=== PATIENT | female | born 1950 | race Caucasian/White ===

== ENCOUNTER 2018-11-16 15:54 | Inpatient (IN) | payer OTHER | END 2018-11-23 20:48 | LOC: JER 15:54 → J4S 11-17 15:15 → JERBED 16:07 ==

== ENCOUNTER 2021-01-23 13:43 | Inpatient (IN) | payer OTHER ==
[2021-01-23 16:36] LABS: VENOUS BASE EXCESS -1.1 mmol/L (-2-2); VENOUS O2 SATURATION 96.9 % (70-80); VENOUS PCO2 35.1 mmHg (38-52); VENOUS PH 7.427 (7.310-7.410)
[2021-01-23 16:52] LABS: BASO % 0.6 % (0-2.0); EOS % 0.6 % (0-4.5); HEMATOCRIT 40.9 % (32.4-45.2); HEMOGLOBIN 13.5 GM/dL (10.7-15.3); INR 1.14 (0.83-1.09); LYMPH % 8.7 % (8-40); MCH 30.6 pg (25.7-33.7); MCHC 33.1 g/dl (32.0-36.0); MEAN CELL VOLUME 92.5 fl (80-96); MEAN PLT VOLUME 8.3 fl (7.5-11.1); MONO % 6.9 % (3.8-10.2); NEUT % 83.2 % (42.8-82.8); PLATELET COUNT 184 10^3/uL (134-434); PROTHROMBIN TIME (PATIENT) 13.7 SEC (9.7-13.0); RBC 4.42 M/mm3 (3.60-5.2); RDW 17.1 % (11.6-15.6)
[2021-01-23 16:55] LABS: ACTIVATED PTT 26.6 SECONDS (25.2-36.5)
[2021-01-23 16:57] LABS: CHLORIDE 109 mmol/L (98-107); SODIUM 139 mmol/L (136-145)
[2021-01-23 16:59] LABS: CALCIUM 8.3 mg/dL (8.5-10.1)
[2021-01-23 17:00] LABS: ALBUMIN 3.7 g/dl (3.4-5.0); ANION GAP 8 MMOL/L (8-16); BLOOD UREA NITROGEN 18.8 mg/dL (7-18); CO2 22 mmol/L (21-32); GLUCOSE,RANDOM 84 mg/dL (74-106)
[2021-01-23 17:03] LABS: CREATININE 0.7 mg/dL (0.55-1.3); SGOT/AST 32 U/L (15-37); SGPT/ALT 48 U/L (13-61)
[2021-01-23 17:04] LABS: BILIRUBIN,TOTAL 0.6 mg/dL (0.2-1)
[2021-01-23 17:06] LABS: ALK PHOS 63 U/L (45-117)
[2021-01-23 17:08] LABS: N-TERMINAL BNP 5448.3 pg/ml (5-125)
[2021-01-23] MEDS ORDERED: METOPROLOL TARTRATE 50 MG TABLET (FP) PO ONE (20:24)
[2021-01-23] MEDS ORDERED: APIXABAN 5 MG TABLET ONE (20:58)
[2021-01-23] MEDS ORDERED: FUROSEMIDE 40 MG/4 ML INJECTABLE VIAL ONE (20:58)
[2021-01-23] MEDS: APIXABAN 5 MG TABLET PO SCH (21:02)
[2021-01-23] MEDS: FUROSEMIDE 40 MG/4 ML INJECTABLE VIAL IVPUSH SCH (21:02)
[2021-01-23] MEDS ORDERED: NYSTATIN POWDER 100,000 UNITS/GM - 15 GM TOPICAL POWDER TP ONE (21:48)
[2021-01-23] MEDS ORDERED: CARVEDILOL 3.125 MG TABLET (FP) PO SCH (22:00)
[2021-01-23] MEDS: ACETAMINOPHEN 500 MG TABLET (FP) PO PRN (22:20)
[2021-01-24 08:02] LABS: BASO % 0.5 % (0-2.0); EOS % 1.8 % (0-4.5); HEMATOCRIT 41.3 % (32.4-45.2); HEMOGLOBIN 13.5 GM/dL (10.7-15.3); LYMPH % 11.1 % (8-40); MCHC 32.8 g/dl (32.0-36.0); MEAN CELL VOLUME 94.5 fl (80-96); MEAN PLT VOLUME 8.3 fl (7.5-11.1); NEUT % 79.6 % (42.8-82.8); PLATELET COUNT 182 10^3/uL (134-434); RBC 4.37 M/mm3 (3.60-5.2); RDW 17.4 % (11.6-15.6); WHITE BLOOD COUNT 7.7 K/mm3 (4.0-10.0)
[2021-01-24 08:24] LABS: ALBUMIN 3.5 g/dl (3.4-5.0); BLOOD UREA NITROGEN 25.3 mg/dL (7-18); INR 1.45 (0.83-1.09); MAGNESIUM 2.6 mg/dL (1.8-2.4); PROTHROMBIN TIME (PATIENT) 17.6 SEC (9.7-13.0)
[2021-01-24 08:28] LABS: CREATININE 0.9 mg/dL (0.55-1.3); PHOSPHOROUS 3.8 mg/dL (2.5-4.9)
[2021-01-24 08:29] LABS: BILIRUBIN,TOTAL 0.7 mg/dL (0.2-1); TOT PROT 6.9 g/dl (6.4-8.2)
[2021-01-24] MEDS ORDERED: ENOXAPARIN NA (PORCINE) 40 MG/0.4 ML DISP.SYRIN SQ SCH (10:00)
[2021-01-24] MEDS ORDERED: APIXABAN 5 MG TABLET PO SCH (10:00)
[2021-01-24] MEDS: FUROSEMIDE 40 MG/4 ML INJECTABLE VIAL IVPUSH SCH (11:03)
[2021-01-24] MEDS: APIXABAN 5 MG TABLET PO SCH ×2 (11:04→21:03)
[2021-01-24] MEDS: ACETAMINOPHEN 500 MG TABLET (FP) PO PRN (21:03)
[2021-01-25] MEDS ORDERED: MELATONIN 5 MG TABLETS PO ONE ×2 (03:02→19:56)
[2021-01-25] MEDS ORDERED: FUROSEMIDE 40 MG/4 ML INJECTABLE VIAL IVPUSH ONE (07:50)
[2021-01-25 08:47] LABS: URINE APPEARANCE CLEAR; URINE BILIRUBIN NEGATIVE (NEGATIVE); URINE COLOR YELLOW; URINE GLUCOSE (UA) NEGATIVE (NEGATIVE); URINE KETONE NEGATIVE (NEGATIVE); URINE LEUK ESTERASE NEGATIVE (NEGATIVE); URINE NITRITE NEGATIVE (NEGATIVE); URINE PROTEIN TRACE (NEGATIVE)
[2021-01-25 08:53] LABS: BASO % 0.7 % (0-2.0); EOS % 1.9 % (0-4.5); HEMATOCRIT 41.5 % (32.4-45.2); HEMOGLOBIN 13.6 GM/dL (10.7-15.3); LYMPH % 6.9 % (8-40); MCH 30.5 pg (25.7-33.7); MCHC 32.8 g/dl (32.0-36.0); MEAN CELL VOLUME 92.7 fl (80-96); MEAN PLT VOLUME 8.2 fl (7.5-11.1); MONO % 6.8 % (3.8-10.2); NEUT % 83.7 % (42.8-82.8); PLATELET COUNT 169 10^3/uL (134-434); RBC 4.47 M/mm3 (3.60-5.2); WHITE BLOOD COUNT 8.4 K/mm3 (4.0-10.0)
[2021-01-25 09:12] LABS: CALCIUM 8.1 mg/dL (8.5-10.1)
[2021-01-25 09:13] LABS: ALBUMIN 3.4 g/dl (3.4-5.0); BLOOD UREA NITROGEN 29.7 mg/dL (7-18)
[2021-01-25 09:16] LABS: CREATININE 0.8 mg/dL (0.55-1.3)
[2021-01-25 09:18] LABS: BILIRUBIN,TOTAL 0.6 mg/dL (0.2-1); TOT PROT 6.7 g/dl (6.4-8.2)
[2021-01-25] MEDS: APIXABAN 5 MG TABLET PO SCH ×2 (09:22→21:16)
[2021-01-25] MEDS: LISINOPRIL 5 MG TABLET PO SCH (09:22)
[2021-01-25] MEDS: ACETAMINOPHEN 500 MG TABLET (FP) PO PRN ×2 (09:23→20:17)
[2021-01-26] MEDS: APIXABAN 5 MG TABLET PO SCH ×2 (09:22→22:41)
[2021-01-26] MEDS: LISINOPRIL 5 MG TABLET PO SCH (09:22)
[2021-01-26] MEDS ORDERED: FUROSEMIDE 40 MG/4 ML INJECTABLE VIAL IVPUSH ONE (10:45)
[2021-01-26 11:24] LABS: HEMOGLOBIN 13.3 GM/dL (10.7-15.3); MCH 31.1 pg (25.7-33.7); MCHC 33.2 g/dl (32.0-36.0); MEAN CELL VOLUME 93.7 fl (80-96); MEAN PLT VOLUME 8.6 fl (7.5-11.1); PLATELET COUNT 172 10^3/uL (134-434); RBC 4.27 M/mm3 (3.60-5.2); RDW 17.1 % (11.6-15.6); WHITE BLOOD COUNT 8.6 K/mm3 (4.0-10.0)
[2021-01-26 11:47] LABS: ALBUMIN 3.2 g/dl (3.4-5.0); BLOOD UREA NITROGEN 25.1 mg/dL (7-18); CALCIUM 8.1 mg/dL (8.5-10.1); MAGNESIUM 2.3 mg/dL (1.8-2.4)
[2021-01-26 11:50] LABS: CREATININE 0.7 mg/dL (0.55-1.3)
[2021-01-26 11:52] LABS: BILIRUBIN,TOTAL 0.6 mg/dL (0.2-1); TOT PROT 6.3 g/dl (6.4-8.2)
[2021-01-26] MEDS: MINERAL OIL/PET HY-PHL TOPICAL OINTMENT 454 GM JAR TP SCH (12:22)
[2021-01-26] MEDS ORDERED: KCL 10 MEQ IVPB 10 MEQ/100 ML INFUS.BAG IVPB SCH (13:30)
[2021-01-26 15:42] VITALS: BMI 41.8
[2021-01-26] MEDS: ACETAMINOPHEN 500 MG TABLET (FP) PO PRN (15:50)
[2021-01-26] MEDS ORDERED: MELATONIN 5 MG TABLETS PO ONE (21:25)
[2021-01-27 07:40] LABS: CALCIUM 8.2 mg/dL (8.5-10.1)
[2021-01-27 07:41] LABS: ALBUMIN 3.4 g/dl (3.4-5.0); BLOOD UREA NITROGEN 20.4 mg/dL (7-18)
[2021-01-27 07:44] LABS: CREATININE 0.6 mg/dL (0.55-1.3)
[2021-01-27 07:46] LABS: BILIRUBIN,TOTAL 0.6 mg/dL (0.2-1); TOT PROT 6.6 g/dl (6.4-8.2)
[2021-01-27] MEDS: LISINOPRIL 5 MG TABLET PO SCH (09:34)
[2021-01-27] MEDS: APIXABAN 5 MG TABLET PO SCH ×2 (09:34→21:56)
[2021-01-27] MEDS: MINERAL OIL/PET HY-PHL TOPICAL OINTMENT 454 GM JAR TP SCH (09:34)
[2021-01-27] MEDS: FUROSEMIDE 40 MG TABLET (FP) PO SCH (12:38)
[2021-01-27] MEDS ORDERED: cefTRIAXone SODIUM 1 GM VIAL ONE (17:30)
[2021-01-27] MEDS ORDERED: DEXTROSE 5%-WATER - 50 ML IVPB ONE (17:30)
[2021-01-27] MEDS: CEFTRIAXONE 1 GM in DEXTROSE 5%-WATER - 50 ML IVPB SCH (17:49)
[2021-01-27] MEDS: ACETAMINOPHEN 500 MG TABLET (FP) PO PRN (20:18)
[2021-01-27] MEDS ORDERED: traMADol HCL 50 MG TABLET PO ONE (20:41)
[2021-01-28] MEDS ORDERED: DEXTROSE 5%-WATER - 50 ML IVPB ONE (10:15)
[2021-01-28] MEDS ORDERED: cefTRIAXone SODIUM 1 GM VIAL ONE (10:15)
[2021-01-28] MEDS: MINERAL OIL/PET HY-PHL TOPICAL OINTMENT 454 GM JAR TP SCH (10:31)
[2021-01-28] MEDS: CEFTRIAXONE 1 GM in DEXTROSE 5%-WATER - 50 ML IVPB SCH (10:31)
[2021-01-28] MEDS: APIXABAN 5 MG TABLET PO SCH ×2 (10:31→21:14)
[2021-01-28] MEDS: FUROSEMIDE 40 MG TABLET (FP) PO SCH (10:31)
[2021-01-28] MEDS: ACETAMINOPHEN 500 MG TABLET (FP) PO PRN (10:37)
[2021-01-29 00:03] VITALS: BP 95/66; PULSE 99; TEMP 98.1
[2021-01-29] MEDS ORDERED: FLUoxetine HCL 20 MG CAPSULE PO SCH (10:00)
== END 2021-01-29 00:09 | disposition home or self-care (01) | DRG 292 ==
LOC: JER 13:43 → JERBED 16:26 → J4S 21:16
PROVIDERS: ADMIT Internal Medicine; ATTEND Internal Medicine
DX: I11.0 Hypertensive heart disease with heart failure (principal); Z68.41 Body mass index [BMI] 40.0-44.9, adult; I50.23 Acute on chronic systolic (congestive) heart failure; I34.0 Nonrheumatic mitral (valve) insufficiency; I48.91 Unspecified atrial fibrillation; E66.9 Obesity, unspecified; F32.9 Major depressive disorder, single episode, unspecified; Z91.14 Patient's other noncompliance with medication regimen; Z91.11 Patient's noncompliance with dietary regimen; I44.7 Left bundle-branch block, unspecified
CPT/HCPCS: 36415; 71045-TC-FY; 80053; 80061; 81003; 82550; 82803; 83036; 83605; 83721; 83735; 83880; 84100; 84443; 84484; 85025; 85027; 85610; 85730; 87086; 87186; 93005; 93010; 93306-TC; 93308; 94761; 97116-GP; 97162-GP; 99285-25; C9803; U0003; U0005

== ENCOUNTER 2021-04-02 01:17 | Inpatient (IN) | payer OTHER ==
[2021-04-02 01:55] LABS: VENOUS BASE EXCESS -3.9 mmol/L (-2-2); VENOUS O2 SATURATION 85.7 % (70-80); VENOUS PCO2 56.6 mmHg (38-52); VENOUS PH 7.25 (7.310-7.410)
[2021-04-02 01:56] LABS: BASO % 0.7 % (0-2.0); EOS % 3.3 % (0-4.5); HEMATOCRIT 43.2 % (32.4-45.2); HEMOGLOBIN 14.2 GM/dL (10.7-15.3); LYMPH % 10.6 % (8-40); MCH 30.8 pg (25.7-33.7); MCHC 32.9 g/dl (32.0-36.0); MEAN CELL VOLUME 93.6 fl (80-96); MEAN PLT VOLUME 8.3 fl (7.5-11.1); MONO % 5.1 % (3.8-10.2); NEUT % 80.3 % (42.8-82.8); PLATELET COUNT 199 10^3/uL (134-434); RBC 4.62 M/mm3 (3.60-5.2); RDW 15.8 % (11.6-15.6); WHITE BLOOD COUNT 7.9 K/mm3 (4.0-10.0)
[2021-04-02 02:07] LABS: INR 1.44 (0.83-1.09); PROTHROMBIN TIME (PATIENT) 17.8 SEC (9.7-13.0)
[2021-04-02 02:09] LABS: ACTIVATED PTT 28.7 SECONDS (25.2-36.5)
[2021-04-02 02:13] LABS: CHLORIDE 107 mmol/L (98-107); SODIUM 143 mmol/L (136-145)
[2021-04-02 02:15] LABS: CALCIUM 8.4 mg/dL (8.5-10.1)
[2021-04-02 02:16] LABS: ALBUMIN 3.3 g/dl (3.4-5.0); ANION GAP 13 MMOL/L (8-16); BLOOD UREA NITROGEN 35.1 mg/dL (7-18); CO2 23 mmol/L (21-32); GLUCOSE,RANDOM 112 mg/dL (74-106); MAGNESIUM 2.1 mg/dL (1.8-2.4)
[2021-04-02 02:19] LABS: SGOT/AST 35 U/L (15-37); SGPT/ALT 37 U/L (13-61)
[2021-04-02 02:20] LABS: BILIRUBIN,TOTAL 0.4 mg/dL (0.2-1)
[2021-04-02 02:21] LABS: TOT PROT 7.2 g/dl (6.4-8.2)
[2021-04-02 02:22] LABS: ALK PHOS 79 U/L (45-117)
[2021-04-02 02:24] LABS: N-TERMINAL BNP 1357.6 pg/ml (5-125)
[2021-04-02] MEDS ORDERED: NOREPINEPHRINE BITARTRATE 16,000 MCG in SODIUM CHLORIDE 484 ML IV SCH (03:45)
[2021-04-02] MEDS ORDERED: ACETAMINOPHEN 1000 MG/100 ML VIAL (NON FORMULARY) IVPB ONE (05:11)
[2021-04-02] MEDS ORDERED: ACETAMINOPHEN INJECTION 100 ML IVPB ONE ×2 (05:12→05:18)
[2021-04-02] MEDS ORDERED: FUROSEMIDE 40 MG/4 ML INJECTABLE VIAL IVPUSH ONE (05:50)
[2021-04-02] MEDS ORDERED: FUROSEMIDE 40 MG/4 ML INJECTABLE VIAL ONE (06:06)
[2021-04-02 08:50] LABS: BASO % 0.4 % (0-2.0); EOS % 0.3 % (0-4.5); HEMATOCRIT 41.7 % (32.4-45.2); LYMPH % 5.5 % (8-40); MCHC 33.5 g/dl (32.0-36.0); MEAN CELL VOLUME 92.6 fl (80-96); MEAN PLT VOLUME 8.6 fl (7.5-11.1); MONO % 6.4 % (3.8-10.2); NEUT % 87.4 % (42.8-82.8); PLATELET COUNT 225 10^3/uL (134-434); RDW 15.3 % (11.6-15.6); WHITE BLOOD COUNT 14.4 K/mm3 (4.0-10.0)
[2021-04-02] MEDS ORDERED: DEXTROSE 5%-WATER - 50 ML IVPB ONE (09:21)
[2021-04-02] MEDS ORDERED: cefTRIAXone SODIUM 1 GM VIAL ONE (09:21)
[2021-04-02 09:26] LABS: ALBUMIN 3.6 g/dl (3.4-5.0); CALCIUM 8.9 mg/dL (8.5-10.1)
[2021-04-02 09:27] LABS: BLOOD UREA NITROGEN 34.2 mg/dL (7-18); MAGNESIUM 2.3 mg/dL (1.8-2.4)
[2021-04-02 09:30] LABS: CREATININE 0.8 mg/dL (0.55-1.3); PHOSPHOROUS 4.3 mg/dL (2.5-4.9)
[2021-04-02 09:31] LABS: BILIRUBIN,TOTAL 0.6 mg/dL (0.2-1); TOT PROT 7.4 g/dl (6.4-8.2)
[2021-04-02] MEDS ORDERED: MUPIROCIN 2% TOPICAL OINTMENT FOR DECOLONIZATION NS SCH (10:00)
[2021-04-02] MEDS ORDERED: PIPERACILLIN/TAZOB 3.375 GM 3.375 GM in DEXTROSE 5%-WATER - 50 ML IVPB SCH (10:00)
[2021-04-02] MEDS ORDERED: SACUBITRIL/VALSARTAN 24 MG-26 MG TABLET PO SCH (10:00)
[2021-04-02] MEDS ORDERED: CEFTRIAXONE 1 GM in DEXTROSE 5%-WATER - 50 ML IVPB SCH (10:00)
[2021-04-02] MEDS ORDERED: ENOXAPARIN NA (PORCINE) 40 MG/0.4 ML DISP.SYRIN SQ SCH (10:00)
[2021-04-02] MEDS ORDERED: APIXABAN 5 MG TABLET PO SCH (10:00)
[2021-04-02] MEDS ORDERED: traZODone HCL 50 MG TABLET (FP) PO ONE (10:54)
[2021-04-02] MEDS ORDERED: FLUoxetine HCL 20 MG CAPSULE PO SCH ×2 (11:00→13:00)
[2021-04-02 11:33] LABS: EPI CELLS 9 /uL (0-25.1); HYALINE CASTS 0 /uL (0-3.1); PH,URINE 5.5 (5.0-8.0); URINE APPEARANCE CLEAR; URINE BACTERIA 447 /uL (0-1359); URINE BILIRUBIN NEGATIVE (NEGATIVE); URINE COLOR YELLOW; URINE GLUCOSE (UA) NEGATIVE (NEGATIVE); URINE KETONE NEGATIVE (NEGATIVE); URINE LEUK ESTERASE NEGATIVE (NEGATIVE); URINE NITRITE NEGATIVE (NEGATIVE); URINE PROTEIN NEGATIVE (NEGATIVE); URINE RBC 33 /uL (0-23.9); URINE UROBILINOGEN 0.2 mg/dL (0.2-1.0); URINE WBC 4 /uL (0-25.8)
[2021-04-02] MEDS ORDERED: CEFTRIAXONE 1 GM in DEXTROSE 5%-WATER - 50 ML IVPB ONE (12:00)
[2021-04-02] MEDS ORDERED: PT OWN MED DRAWER 7, Y5N ONE ×2 (12:00→12:49)
[2021-04-02] MEDS ORDERED: ACETAMINOPHEN 650 MG/20.3 ML ORAL SOLUTION (CUPS) PO ONE (18:29)
[2021-04-02] MEDS ORDERED: traZODone HCL 50 MG TABLET (FP) PO SCH (22:00)
[2021-04-02] MEDS ORDERED: CHLORHEXIDINE GLUCONATE 4% CLEANSER FOR DECOLONIZATION TP SCH (22:00)
[2021-04-02] MEDS ORDERED: MELATONIN 5 MG TABLETS PO ONE (23:23)
[2021-04-02] MEDS: APIXABAN 5 MG TABLET PO SCH (23:48)
[2021-04-02] MEDS: SACUBITRIL/VALSARTAN 24 MG-26 MG TABLET PO SCH (23:48)
[2021-04-03] MEDS ORDERED: ZOLPIDEM TARTRATE 5 MG TABLET PO ONE (01:56)
[2021-04-03] MEDS ORDERED: ACETAMINOPHEN 325 MG TABLET (FP) PO ONE (04:12)
[2021-04-03] MEDS ORDERED: cefTRIAXone SODIUM 1 GM VIAL ONE (09:28)
[2021-04-03] MEDS ORDERED: DEXTROSE 5%-WATER - 50 ML IVPB ONE (09:28)
[2021-04-03] MEDS: CEFTRIAXONE 1 GM in DEXTROSE 5%-WATER - 50 ML IVPB SCH (09:29)
[2021-04-03] MEDS: APIXABAN 5 MG TABLET PO SCH ×2 (09:31→22:20)
[2021-04-03] MEDS: SACUBITRIL/VALSARTAN 24 MG-26 MG TABLET PO SCH ×2 (09:31→22:19)
[2021-04-03] MEDS ORDERED: FUROSEMIDE 40 MG/4 ML INJECTABLE VIAL IVPUSH SCH ×2 (10:00)
[2021-04-03] MEDS ORDERED: CEFTRIAXONE 1 GM in DEXTROSE 5%-WATER - 50 ML IVPB SCH (10:00)
[2021-04-03] MEDS ORDERED: PT OWN MED DRAWER 7, Y5N ONE (13:53)
[2021-04-03] MEDS: FLUoxetine HCL 20 MG CAPSULE PO SCH (15:49)
[2021-04-03] MEDS: AMINO ACIDS/PROTEIN HYDROLYS 30 ML LIQUID.PKT PO SCH (18:38)
[2021-04-03] MEDS ORDERED: MELATONIN 5 MG TABLETS PO ONE (21:51)
[2021-04-03] MEDS ORDERED: traZODone HCL 50 MG TABLET (FP) PO ONE (21:58)
[2021-04-04] MEDS ORDERED: ACETAMINOPHEN 1000 MG/100 ML VIAL (NON FORMULARY) IVPB ONE (04:19)
[2021-04-04 06:26] LABS: BASO % 0.6 % (0-2.0); HEMATOCRIT 36.7 % (32.4-45.2); HEMOGLOBIN 12.4 GM/dL (10.7-15.3); LYMPH % 12.2 % (8-40); MCH 31.2 pg (25.7-33.7); MCHC 33.7 g/dl (32.0-36.0); MEAN CELL VOLUME 92.6 fl (80-96); MEAN PLT VOLUME 8.4 fl (7.5-11.1); MONO % 9.2 % (3.8-10.2); PLATELET COUNT 150 10^3/uL (134-434); RBC 3.97 M/mm3 (3.60-5.2); RDW 15.5 % (11.6-15.6); WHITE BLOOD COUNT 6.6 K/mm3 (4.0-10.0)
[2021-04-04 07:08] LABS: CALCIUM 8.5 mg/dL (8.5-10.1); CREATININE 0.6 mg/dL (0.55-1.3); PHOSPHOROUS 3.2 mg/dL (2.5-4.9)
[2021-04-04 07:09] LABS: BLOOD UREA NITROGEN 19.6 mg/dL (7-18)
[2021-04-04 07:10] LABS: BILIRUBIN,TOTAL 0.7 mg/dL (0.2-1); MAGNESIUM 1.8 mg/dL (1.8-2.4); TOT PROT 6.3 g/dl (6.4-8.2)
[2021-04-04] MEDS ORDERED: DEXTROSE 5%-WATER - 50 ML IVPB ONE (09:24)
[2021-04-04] MEDS ORDERED: cefTRIAXone SODIUM 1 GM VIAL ONE (09:24)
[2021-04-04] MEDS ORDERED: PT OWN MED DRAWER 7, Y5N ONE ×2 (09:24→21:17)
[2021-04-04] MEDS: FLUoxetine HCL 20 MG CAPSULE PO SCH (10:13)
[2021-04-04] MEDS: SACUBITRIL/VALSARTAN 24 MG-26 MG TABLET PO SCH ×2 (10:14→21:22)
[2021-04-04] MEDS: MULTIVITAMINS (DAILY MVI) TABLET (FP) PO SCH (10:14)
[2021-04-04] MEDS: APIXABAN 5 MG TABLET PO SCH ×2 (10:14→21:22)
[2021-04-04] MEDS: CEFTRIAXONE 1 GM in DEXTROSE 5%-WATER - 50 ML IVPB SCH (10:14)
[2021-04-04] MEDS: AMINO ACIDS/PROTEIN HYDROLYS 30 ML LIQUID.PKT PO SCH ×2 (10:17→17:42)
[2021-04-04] MEDS: ACETAMINOPHEN 325 MG TABLET (FP) PO PRN ×2 (12:54→23:49)
[2021-04-04] MEDS ORDERED: traZODone HCL 50 MG TABLET (FP) PO SCH (22:00)
[2021-04-05 06:45] LABS: WHITE BLOOD COUNT 6.7 K/mm3 (4.0-10.0)
[2021-04-05 06:46] LABS: BASO % 0.5 % (0-2.0); EOS % 3.3 % (0-4.5); HEMATOCRIT 39.1 % (32.4-45.2); HEMOGLOBIN 13.2 GM/dL (10.7-15.3); MCH 31.2 pg (25.7-33.7); MCHC 33.6 g/dl (32.0-36.0); MEAN CELL VOLUME 92.7 fl (80-96); MEAN PLT VOLUME 8.2 fl (7.5-11.1); MONO % 9.8 % (3.8-10.2); NEUT % 71.4 % (42.8-82.8); PLATELET COUNT 160 10^3/uL (134-434); RBC 4.22 M/mm3 (3.60-5.2); RDW 15.4 % (11.6-15.6)
[2021-04-05 07:42] LABS: BLOOD UREA NITROGEN 15.9 mg/dL (7-18); CREATININE 0.5 mg/dL (0.55-1.3)
[2021-04-05 07:43] LABS: ALBUMIN 2.9 g/dl (3.4-5.0); BILIRUBIN,TOTAL 0.5 mg/dL (0.2-1); CALCIUM 8.6 mg/dL (8.5-10.1); TOT PROT 6.4 g/dl (6.4-8.2)
[2021-04-05] MEDS: AMINO ACIDS/PROTEIN HYDROLYS 30 ML LIQUID.PKT PO SCH ×2 (08:03→17:30)
[2021-04-05] MEDS ORDERED: FUROSEMIDE 40 MG TABLET (FP) PO SCH ×2 (10:00→11:28)
[2021-04-05] MEDS ORDERED: PT OWN MED DRAWER 7, Y5N ONE ×3 (11:06→20:51)
[2021-04-05] MEDS: ACETAMINOPHEN 325 MG TABLET (FP) PO PRN ×2 (11:25→23:24)
[2021-04-05] MEDS ORDERED: CEFTRIAXONE 1 GM in DEXTROSE 5%-WATER - 50 ML IVPB SCH (11:28)
[2021-04-05] MEDS ORDERED: SACUBITRIL/VALSARTAN 24 MG-26 MG TABLET PO SCH ×2 (11:28→22:00)
[2021-04-05] MEDS ORDERED: FLUoxetine HCL 20 MG CAPSULE PO SCH ×2 (11:28→11:45)
[2021-04-05] MEDS ORDERED: APIXABAN 5 MG TABLET PO SCH ×2 (11:28→22:00)
[2021-04-05] MEDS ORDERED: MULTIVITAMINS (DAILY MVI) TABLET (FP) PO SCH (11:29)
[2021-04-05] MEDS: FUROSEMIDE 40 MG TABLET (FP) PO SCH (11:45)
[2021-04-05] MEDS: APIXABAN 5 MG TABLET PO SCH ×3 (11:45→21:06)
[2021-04-05] MEDS: MULTIVITAMINS (DAILY MVI) TABLET (FP) PO SCH ×2 (11:45→14:56)
[2021-04-05] MEDS: SACUBITRIL/VALSARTAN 24 MG-26 MG TABLET PO SCH ×3 (11:45→21:06)
[2021-04-05] MEDS: CEFTRIAXONE 1 GM in DEXTROSE 5%-WATER - 50 ML IVPB SCH ×2 (11:46→14:56)
[2021-04-05] MEDS: FLUoxetine HCL 20 MG CAPSULE PO SCH (14:56)
[2021-04-05] MEDS: traZODone HCL 50 MG TABLET (FP) PO SCH (21:07)
[2021-04-06] MEDS ORDERED: NYSTATIN POWDER 100,000 UNITS/GM - 15 GM TOPICAL POWDER TP ONE (01:44)
[2021-04-06] MEDS ORDERED: MINERAL OIL/PET HY-PHL TOPICAL OINTMENT 454 GM JAR TP ONE (01:45)
[2021-04-06] MEDS: ACETAMINOPHEN 325 MG TABLET (FP) PO PRN ×2 (08:14→21:50)
[2021-04-06] MEDS: AMINO ACIDS/PROTEIN HYDROLYS 30 ML LIQUID.PKT PO SCH ×2 (08:16→17:25)
[2021-04-06] MEDS: FLUoxetine HCL 20 MG CAPSULE PO SCH (08:16)
[2021-04-06 09:00] LABS: BASO % 0.5 % (0-2.0); EOS % 3.4 % (0-4.5); HEMATOCRIT 37.6 % (32.4-45.2); HEMOGLOBIN 12.8 GM/dL (10.7-15.3); LYMPH % 11.5 % (8-40); MCHC 33.9 g/dl (32.0-36.0); MEAN CELL VOLUME 91.5 fl (80-96); MONO % 9.3 % (3.8-10.2); NEUT % 75.3 % (42.8-82.8); PLATELET COUNT 165 10^3/uL (134-434); RBC 4.12 M/mm3 (3.60-5.2); RDW 15.7 % (11.6-15.6); WHITE BLOOD COUNT 6.8 K/mm3 (4.0-10.0)
[2021-04-06 09:32] LABS: ALBUMIN 3.2 g/dl (3.4-5.0); BLOOD UREA NITROGEN 21.2 mg/dL (7-18); CALCIUM 8.9 mg/dL (8.5-10.1)
[2021-04-06 09:35] LABS: CREATININE 0.6 mg/dL (0.55-1.3)
[2021-04-06 09:37] LABS: BILIRUBIN,TOTAL 0.5 mg/dL (0.2-1); TOT PROT 6.7 g/dl (6.4-8.2)
[2021-04-06] MEDS ORDERED: CEFTRIAXONE 1 GM in DEXTROSE 5%-WATER - 50 ML IVPB SCH (10:00)
[2021-04-06] MEDS ORDERED: FLUoxetine HCL 20 MG CAPSULE PO SCH (10:00)
[2021-04-06] MEDS ORDERED: MULTIVITAMINS (DAILY MVI) TABLET (FP) PO SCH (10:00)
[2021-04-06] MEDS ORDERED: FUROSEMIDE 40 MG TABLET (FP) PO SCH (10:00)
[2021-04-06] MEDS ORDERED: cefTRIAXone SODIUM 1 GM VIAL ONE (10:10)
[2021-04-06] MEDS ORDERED: DEXTROSE 5%-WATER - 50 ML IVPB ONE (10:10)
[2021-04-06] MEDS ORDERED: PT OWN MED DRAWER 7, Y5N ONE (10:10)
[2021-04-06] MEDS: APIXABAN 5 MG TABLET PO SCH ×2 (10:14→21:52)
[2021-04-06] MEDS: SACUBITRIL/VALSARTAN 24 MG-26 MG TABLET PO SCH ×2 (10:15→21:51)
[2021-04-06] MEDS: FUROSEMIDE 40 MG TABLET (FP) PO SCH (10:16)
[2021-04-06] MEDS: MULTIVITAMINS (DAILY MVI) TABLET (FP) PO SCH (10:16)
[2021-04-06] MEDS: CEFTRIAXONE 1 GM in DEXTROSE 5%-WATER - 50 ML IVPB SCH (10:17)
[2021-04-06] MEDS: traZODone HCL 50 MG TABLET (FP) PO SCH (21:51)
[2021-04-07] MEDS ORDERED: IBUPROFEN 400 MG TABLET (FP) PO ONE (01:09)
[2021-04-07] MEDS: ACETAMINOPHEN 325 MG TABLET (FP) PO PRN ×3 (04:39→21:27)
[2021-04-07] MEDS ORDERED: cefTRIAXone SODIUM 1 GM VIAL ONE (09:25)
[2021-04-07] MEDS ORDERED: PT OWN MED DRAWER 7, Y5N ONE ×2 (09:25→20:45)
[2021-04-07] MEDS ORDERED: DEXTROSE 5%-WATER - 50 ML IVPB ONE (09:25)
[2021-04-07 09:50] LABS: BASO % 0.7 % (0-2.0); EOS % 4.2 % (0-4.5); HEMATOCRIT 38.2 % (32.4-45.2); HEMOGLOBIN 12.8 GM/dL (10.7-15.3); LYMPH % 12.7 % (8-40); MCH 31.1 pg (25.7-33.7); MCHC 33.5 g/dl (32.0-36.0); MEAN CELL VOLUME 92.8 fl (80-96); MEAN PLT VOLUME 8.3 fl (7.5-11.1); MONO % 9.1 % (3.8-10.2); NEUT % 73.3 % (42.8-82.8); PLATELET COUNT 178 10^3/uL (134-434); RBC 4.11 M/mm3 (3.60-5.2); RDW 15.3 % (11.6-15.6)
[2021-04-07] MEDS: APIXABAN 5 MG TABLET PO SCH ×2 (10:08→21:26)
[2021-04-07] MEDS: FLUoxetine HCL 20 MG CAPSULE PO SCH (10:09)
[2021-04-07] MEDS: SACUBITRIL/VALSARTAN 24 MG-26 MG TABLET PO SCH ×2 (10:09→21:26)
[2021-04-07] MEDS: AMINO ACIDS/PROTEIN HYDROLYS 30 ML LIQUID.PKT PO SCH ×2 (10:09→19:03)
[2021-04-07] MEDS: FUROSEMIDE 40 MG TABLET (FP) PO SCH (10:09)
[2021-04-07] MEDS: CEFTRIAXONE 1 GM in DEXTROSE 5%-WATER - 50 ML IVPB SCH (10:10)
[2021-04-07] MEDS: MULTIVITAMINS (DAILY MVI) TABLET (FP) PO SCH (10:10)
[2021-04-07 10:28] LABS: BLOOD UREA NITROGEN 20.7 mg/dL (7-18); CALCIUM 8.8 mg/dL (8.5-10.1); MAGNESIUM 2.3 mg/dL (1.8-2.4)
[2021-04-07 10:31] LABS: CREATININE 0.5 mg/dL (0.55-1.3); PHOSPHOROUS 4.7 mg/dL (2.5-4.9)
[2021-04-07 10:33] LABS: TOT PROT 6.6 g/dl (6.4-8.2)
[2021-04-07 10:34] LABS: BILIRUBIN,TOTAL 0.5 mg/dL (0.2-1)
[2021-04-07 15:31] VITALS: BMI 34.7
[2021-04-07] MEDS: GABAPENTIN 100 MG CAPSULE PO SCH (21:26)
[2021-04-07] MEDS: traZODone HCL 50 MG TABLET (FP) PO SCH (21:26)
[2021-04-08] MEDS: ACETAMINOPHEN 325 MG TABLET (FP) PO PRN ×2 (06:16→15:28)
[2021-04-08] MEDS: GABAPENTIN 100 MG CAPSULE PO SCH ×3 (06:16→22:05)
[2021-04-08] MEDS ORDERED: PT OWN MED DRAWER 7, Y5N ONE (09:03)
[2021-04-08] MEDS ORDERED: cefTRIAXone SODIUM 1 GM VIAL ONE (09:04)
[2021-04-08] MEDS ORDERED: DEXTROSE 5%-WATER - 50 ML IVPB ONE (09:04)
[2021-04-08 09:12] LABS: BASO % 0.6 % (0-2.0); EOS % 4.2 % (0-4.5); HEMATOCRIT 38.6 % (32.4-45.2); HEMOGLOBIN 12.9 GM/dL (10.7-15.3); LYMPH % 10.8 % (8-40); MCH 31.1 pg (25.7-33.7); MCHC 33.3 g/dl (32.0-36.0); MEAN CELL VOLUME 93.2 fl (80-96); MEAN PLT VOLUME 8.3 fl (7.5-11.1); MONO % 8.6 % (3.8-10.2); NEUT % 75.8 % (42.8-82.8); PLATELET COUNT 184 10^3/uL (134-434); RBC 4.15 M/mm3 (3.60-5.2); RDW 15.8 % (11.6-15.6); WHITE BLOOD COUNT 6.8 K/mm3 (4.0-10.0)
[2021-04-08] MEDS: APIXABAN 5 MG TABLET PO SCH ×2 (09:13→22:05)
[2021-04-08] MEDS: MULTIVITAMINS (DAILY MVI) TABLET (FP) PO SCH (09:13)
[2021-04-08] MEDS: FLUoxetine HCL 20 MG CAPSULE PO SCH (09:13)
[2021-04-08] MEDS: FUROSEMIDE 40 MG TABLET (FP) PO SCH (09:13)
[2021-04-08] MEDS: SACUBITRIL/VALSARTAN 24 MG-26 MG TABLET PO SCH ×2 (09:14→22:05)
[2021-04-08] MEDS: AMINO ACIDS/PROTEIN HYDROLYS 30 ML LIQUID.PKT PO SCH ×2 (09:14→17:45)
[2021-04-08] MEDS: CEFTRIAXONE 1 GM in DEXTROSE 5%-WATER - 50 ML IVPB SCH (09:14)
[2021-04-08 09:32] LABS: CALCIUM 8.8 mg/dL (8.5-10.1)
[2021-04-08 09:34] LABS: BLOOD UREA NITROGEN 28.4 mg/dL (7-18); MAGNESIUM 2.2 mg/dL (1.8-2.4)
[2021-04-08 09:37] LABS: CREATININE 0.6 mg/dL (0.55-1.3)
[2021-04-08 09:39] LABS: BILIRUBIN,TOTAL 0.4 mg/dL (0.2-1); TOT PROT 6.6 g/dl (6.4-8.2)
[2021-04-08 09:45] LABS: PHOSPHOROUS 4.7 mg/dL (2.5-4.9)
[2021-04-08 15:52] VITALS: BP 115/56; PULSE 85; TEMP 97.9
[2021-04-08] MEDS: traZODone HCL 50 MG TABLET (FP) PO SCH (22:04)
== END 2021-04-08 22:00 | disposition home or self-care (01) | DRG 291 ==
LOC: JER 01:17 → JERBED 01:46 → JICU 08:48 → J8W 04-05 14:00
PROVIDERS: ADMIT Internal Medicine
PROC: 05HM33Z Insertion of Infusion Device into Right Internal Jugular Vein, Percutaneous Approach (ICD-10-PCS; principal; 2021-04-02)
PROC: B543ZZA Ultrasonography of Right Jugular Veins, Guidance (ICD-10-PCS; 2021-04-02)
DX: I11.0 Hypertensive heart disease with heart failure (principal); I50.23 Acute on chronic systolic (congestive) heart failure; N39.0 Urinary tract infection, site not specified; E87.2 Acidosis; I42.9 Cardiomyopathy, unspecified; I95.9 Hypotension, unspecified; I48.91 Unspecified atrial fibrillation; I34.0 Nonrheumatic mitral (valve) insufficiency; F41.8 Other specified anxiety disorders; E66.01 Morbid (severe) obesity due to excess calories; E78.5 Hyperlipidemia, unspecified; Z68.36 Body mass index [BMI] 36.0-36.9, adult
CPT/HCPCS: 36415; 70450-TC; 71045-TC-FY; 72125-TC; 80053; 81003; 82550; 82803; 83735; 83880; 84100; 84484; 85025; 85610; 85730; 87040; 87086; 87186; 93005; 93010; 94010; 97116-GP; 97162-GP; 99285-25; C9803; J0131; U0003; U0005